=== PATIENT | male | born 1955 | race Caucasian/White ===

== ENCOUNTER 2016-08-22 02:59 | Emergency (ER) | payer SELFPAY ==
[~2016-08-22] VITALS: Ht 177.8 cm; Wt 74.0 kg
[~2016-08-22 02:59] MED LIST: IBUP600T26 PO; PRIN10TA PO
[2016-08-22 03:05] VITALS: BP 137/82; PULSE 76; RESP 18; TEMP 98.2; O2SAT 100
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
[2016-08-22 06:00] VITALS: BP 137/83; PULSE 92; RESP 16; O2SAT 98
== END 2016-08-22 07:49 | disposition home or self-care (01) ==
LOC: NEPD 02:59
DX: F10.120 Alcohol abuse with intoxication, uncomplicated (principal); F17.200 Nicotine dependence, unspecified, uncomplicated
CPT/HCPCS: 99282

== ENCOUNTER 2016-09-22 23:37 | Emergency (ER) | payer OTHER ==
[2016-09-22 23:45] VITALS: BP 143/80; PULSE 76; RESP 18; TEMP 98.1; O2SAT 100
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
[2016-09-23 08:33] VITALS: BP 143/72
== END 2016-09-23 08:53 | disposition home or self-care (01) ==
LOC: NEPD 23:37
DX: F10.929 Alcohol use, unspecified with intoxication, unspecified (principal); I10 Essential (primary) hypertension; F17.210 Nicotine dependence, cigarettes, uncomplicated; Z59.0 Homelessness
CPT/HCPCS: 99282

== ENCOUNTER 2016-09-28 22:53 | Emergency (ER) | payer OTHER ==
[2016-09-28 23:05] VITALS: BP 126/80; PULSE 70; RESP 16; TEMP 97; O2SAT 94
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
== END 2016-09-29 06:00 | disposition home or self-care (01) ==
LOC: NEPD 22:53
DX: F10.120 Alcohol abuse with intoxication, uncomplicated (principal); F17.210 Nicotine dependence, cigarettes, uncomplicated; I10 Essential (primary) hypertension; J44.9 Chronic obstructive pulmonary disease, unspecified; Z59.0 Homelessness; Y90.9 Presence of alcohol in blood, level not specified
CPT/HCPCS: 99283